=== PATIENT | female | born 1990 | race Two or more races ===

== ENCOUNTER 2020-06-02 16:52 | Emergency (ER) | payer SELFPAY ==
--- NOTE | 2020-06-02 17:48 | EDM.PDOC ---
<Dian Holland - Last Filed: 06/02/20 17:49> ED HPI GENERAL MEDICAL PROBLEM - General Chief Complaint: General Stated Complaint: LEFT LEG PAIN Time Seen by Provider: 06/02/20 17:43 Source of Information: Reports: Patient History Limitations: Reports: No Limitations - History of Present Illness INITIAL COMMENTS - FREE TEXT/NARRATIVE: Pt is here working at [employer] and she is not able to speak Setswana. A healthcare administrative assistant was used. She has burning in her lower abdoman. She has burning when she vioids. She has cva pain. She has pain in her left leg and it appearss it radiates over the buttock into the leg. She does not feel that straight leg raising increases the pain alot. Onset: Gradual, Other (pt works a[employer]. She sits 6 hours and stands 6 hours. ) Duration: Hour(s): Location: Reports: Back, Lower Extremity, Left, Other (pt does not think that she has had a fever. 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 ) : Reports: Other (pt states she is burning. ) Musculoskeletal: Reports: Back Pain, Muscle Pain Skin: Reports: No Symptoms Psychiatric: Reports: Anxiety ED EXAM, GENERAL - Physical Exam Exam: See Below Free Text/Narrative:: pt arrived with pain in her left leg. She works at [employer] an sits for 6 hours and stands for 6 hours. She has not had swelling in the left leg. Exam Limited By: No Limitations General Appearance: Alert, Anxious, Mild Distress Ears: Normal TMs Nose: Normal Inspection Throat/Mouth: Normal Inspection Head: Atraumatic Neck: Normal Inspection Respiratory/Chest: No Respiratory Distress Cardiovascular: Regular Rate, Rhythm GI/Abdominal: Soft, Other (pt is tender over the bladder. ) (Female) Exam: Deferred Rectal (Female) Exam: Deferred Back Exam: Other (pt is very tender to palpate in the left paraspinous muscle . This appear to be tight. ) Extremities: Other ( no swelling is noted. She has mild tenderness in the post calf and inner aspect of the thigh. She does not have a classicly positive straight leg rasing sign. ) Neurological: Alert, Oriented, Normal Cognition, Other (pt does not speak japanese. ) Psychiatric: Anxious Departure - Departure Disposition: Home, Self-Care 01 Clinical Impression: Sciatica of left side Acute lumbar myofascial strain Qualifiers: Encounter type: initial encounter Qualified Code(s): S39.012A - Strain of muscle, fascia and tendon of lower back, initial encounter - Discharge Information Instructions: Lumbosacral Strain, Sciatica Referrals: PCP,None [Primary Care Provider] - Forms: ED Department Discharge Care Plan Goals: I have started you on methocarbamol 750 mg 4 times a day which is the muscle relaxant. We also have a prescription for you in the [facility] machine for Toradol 10 mg 4 times a day for pain control. You may also want to ice the lower back to help relieve some of the spasm. Sepsis Event Note (ED) - Evaluation Sepsis Screening Result: No Definite Risk <Tai Rajan - Last Filed: 06/02/20 19:00> Course - Vital Signs Last Recorded V/S: Last Vital Signs Temp 36.1 C 06/02/20 17:07 Pulse 82 06/02/20 17:07 Resp 20 06/02/20 17:07 BP 127/64 06/02/20 17:07 Pulse Ox 98 06/02/20 17:07 - Orders/Labs/Meds Orders: Active Orders 24 hr Category Date Time Status Lumbar Spine 2 or 3V [CR] Stat Exams 03/25/21 17:41 Taken DD [D-DIMER QUANTITATIVE] [COAG] Stat Lab 06/02/20 18:02 Received Labs: Laboratory Tests 06/02/20 06/02/20 06/02/20 Range/Units 17:23 17:45 17:59 WBC (4.5-11.0) K/uL RBC (3.30-5.50) M/uL Hgb (12.0-15.0) g/dL Hct (36.0-48.0) % MCV (80-98) fL MCH (27-31) pg MCHC (32-36) % Plt Count (150-400) K/uL Neut % (Auto) (36-66) % Lymph % (Auto) (24-44) % Finney % (Auto) (2-6) % Eos % (Auto) (2-4) % Baso % (Auto) (0-1) % Sodium 142 (140-148) mmol/L Potassium 4.0 (3.6-5.2) mmol/L Chloride 106 (100-108) mmol/L Carbon Dioxide 27 (21-32) mmol/L Anion Gap 9.3 (5.0-14.0) mmol/L BUN 23 H (7-18) mg/dL Creatinine 1.1 H (0.6-1.0) mg/dL Est Cr Clr Drug Dosing 68.52 mL/min Estimated GFR (MDRD) 59 L (>60) Glucose 94 (74-106) mg/dL Calcium 9.4 (8.5-10.1) mg/dL Urine Color Yellow (YELLOW) Urine Appearance Slightly cloudy A (CLEAR) Urine pH 6.5 (5.0-8.0) Ur Specific [place] >= 1.030 (1.008-1.030) Urine Protein Negative (NEGATIVE) mg/dL Urine Glucose (UA) Negative (NEGATIVE) mg/dL Urine Ketones Negative (NEGATIVE) mg/dL Urine Occult Blood Negative (NEGATIVE) Urine Nitrite Negative (NEGATIVE) Urine Bilirubin Negative (NEGATIVE) Urine Urobilinogen 0.2 (0.2-1.0) EU/dL Ur Leukocyte Esterase Negative (NEGATIVE) Urine RBC Not seen (0-5) Urine WBC Not seen (0-5) Ur Epithelial Cells Many Amorphous Sediment Few Urine Bacteria Few Urine Mucus Not seen Urine HCG, Qual Negative 06/02/20 Range/Units 17:59 WBC 10.7 (4.5-11.0) K/uL RBC 4.51 (3.30-5.50) M/uL Hgb 12.6 (12.0-15.0) g/dL Hct 39.0 (36.0-48.0) % MCV 87 (80-98) fL MCH 28 (27-31) pg MCHC 32 (32-36) % Plt Count 256 (150-400) K/uL Neut % (Auto) 58 (36-66) % Lymph % (Auto) 34 (24-44) % [place] % (Auto) 5 (2-6) % Eos % (Auto) 2 (2-4) % Baso % (Auto) 0 (0-1) % Sodium (140-148) mmol/L Potassium (3.6-5.2) mmol/L Chloride (100-108) mmol/L Carbon Dioxide (21-32) mmol/L Anion Gap (5.0-14.0) mmol/L BUN (7-18) mg/dL Creatinine (0.6-1.0) mg/dL Est Cr Clr Drug Dosing mL/min Estimated GFR (MDRD) (>60) Glucose (74-106) mg/dL Calcium (8.5-10.1) mg/dL Urine Color (YELLOW) Urine Appearance (CLEAR) Urine pH (5.0-8.0) Ur Specific [place] (1.008-1.030) Urine Protein (NEGATIVE) mg/dL Urine Glucose (UA) (NEGATIVE) mg/dL Urine Ketones (NEGATIVE) mg/dL Urine Occult Blood (NEGATIVE) Urine Nitrite (NEGATIVE) Urine Bilirubin (NEGATIVE) Urine Urobilinogen (0.2-1.0) EU/dL Ur Leukocyte Esterase (NEGATIVE) Urine RBC (0-5) Urine WBC (0-5) Ur Epithelial Cells Amorphous Sediment Urine Bacteria Urine Mucus Urine HCG, Qual Meds: Medications Discontinued Medications Generic Name Dose Route Start Last Admin Trade Name Freq PRN Reason Stop Dose Admin Ketorolac Tromethamine 60 mg 06/02/20 17:50 06/02/20 17:56 Ketorolac 60 Mg/2 Ml Sdv IM 06/02/20 17:51 60 mg ONETIME ONE Administration - Radiology Interpretation Free Text/Narrative:: I reviewed the lumbar spine x-rays. There is no acute abnormalities identified. - Re-Assessments/Exams Free Text/Narrative Re-Assessment/Exam: 06/02/20 18:00 Dr. Rajan is assuming careof the patient from Dr. Holland. Cecilia is a 30-year-old female who is [place]i-speaking presenting to the ED with low abdominal and left lower extremity pain that started 4 days ago. Patient works at [employer] and spends 6 hours of her day sitting and 6 hours of her day standing. 06/02/20 18:40 reviewed the patient's labs including a CBC, urinalysis, and comprehensive metabolic profile. CBC is normal. Urinalysis is unremarkable. The comprehensive metabolic panel is only significant for creatinine 1.1. No hematuria. Urine test is negative. Trays of the lumbar spine were obtained and are unremarkable for any significant findings. Likely represents an acute lumbar strain with sciatica down the left leg. We will put the patient on oral Toradol 10 mg 4 times daily and methocarbamol 750 mg 4 times daily as needed for muscle spasm. I anticipate that this will take roughly 7 to 10 days to fully clear. We will put her on a lifting restriction of 20 pounds and no prolonged standing or sitting. I discussed all of this with the patient using the video [place]i partner. All questions were answered and the patient understood the plan. Departure - Departure Time of Disposition: 18:55 Sepsis Event Note (ED) - Focused Exam Vital Signs: Vital Signs Temp Pulse Resp BP Pulse Ox 06/02/20 17:07 36.1 C 82 20 127/64 98 - Problem List & Annotations (1) Acute lumbar myofascial strain SNOMED Code(s): 994950172, 98180960, 319138298 Code(s): S39.012A - STRAIN OF MUSCLE, FASCIA AND TENDON OF LOWER BACK, INIT Status: Acute Priority: Medium Current Visit: Yes Qualifiers: Encounter type: initial encounter Qualified Code(s): S39.012A - Strain of muscle, fascia and tendon of lower back, initial encounter (2) Sciatica of left side SNOMED Code(s): 85335939 Code(s): M54.32 - SCIATICA, LEFT SIDE Status: Acute Priority: Medium Current Visit: Yes - Problem List Review Problem List Initiated/Reviewed/Updated: Yes
[2020-06-02] MEDS ORDERED: Ketorolac 60 MG/2 ML SDV IM ONE (17:50)
[2020-06-02] MEDS ORDERED: Methocarbamol 500 MG Tab PO ONE (19:00)
--- NOTE | 2020-06-03 08:56 | CR ---
Lumbar Spine 2 or 3V CLINICAL HISTORY: Left-sided back pain FINDINGS: The vertebral body heights and disc spaces are maintained. Alignment is intact. Spontaneous transverse processes and pedicles appear intact. IMPRESSION: Negative
== END 2020-06-02 19:14 | disposition home or self-care (01) ==
LOC: JP.ED 16:52
DX: S39.012A Strain of muscle, fascia and tendon of lower back, initial encounter (principal); X58.XXXA Exposure to other specified factors, initial encounter
CPT/HCPCS: 36415; 72100; 80048; 81001; 81025; 85025; 85379; 96372; 99283; A9270; J1885